=== PATIENT | male | born 1975 | race African-American/Black ===

== ENCOUNTER 2021-09-30 20:27 | Inpatient (IN) | payer SELFPAY ==
[2021-09-30 22:30] VITALS: BMI 27.3
[2021-09-30] MEDS ORDERED: Ondansetron PF 4 MG/2 ML Vial IVP PRN (22:56)
[2021-09-30] MEDS ORDERED: Acetaminophen 325 MG TAB PO PRN (22:56)
[2021-09-30] MEDS ORDERED: HumaLOG 300 UNITS/3 ML VIAL SC PRN (22:59)
[2021-09-30] MEDS ORDERED: Dextrose 5% in Water 1,000 ML IV PRN (22:59)
[2021-09-30] MEDS ORDERED: hydrALAZINE 20 MG/ML VIAL SLOW IVP PRN (22:59)
[2021-09-30] MEDS ORDERED: Dextrose 50% Abboject 50 ML SYRINGE SLOW IVP PRN (22:59)
[2021-09-30 23:27] LABS: #Lymphocytes 1.5 thou/uL (1.20-3.40); #Monocytes 1.1 thou/uL (0.11-0.59); #Neutrophils 7.4 thou/uL (1.40-6.50); %Basophils 0.4 % (0.0-1.0); %Eosinophils 0.3 % (0.0-10.0); %Lymphocytes 15.3 % (21.0-51.0); %Monocytes 10.6 % (0.0-10.0); %Neutrophils 73.4 % (42.0-75.0); Hemoglobin 13.4 g/dL (14.0-18.0); Mean Corpuscular HGB CONC 33.3 g/dL (32.0-36.0); Mean Corpuscular Hemoglobin 30.2 pg (27.0-31.0); Mean Corpuscular Volume 90.8 fL (78.0-98.0); Mean Platelet Volume 6.9 fL (7.4-10.4); Platelet Count 332 thou/uL (130-400); RBC Distribution Width 12.1 % (11.5-14.5); Red Blood Cell (RBC) Count 4.44 mill/uL (4.70-6.10); White Blood Cell (WBC) Count 10.1 thou/uL (4.8-10.8)
[2021-09-30] MEDS: Cefepime 2 GM in Sodium Chloride 0.9% 100 ML IVPB SCH (23:57)
[2021-10-01] MEDS: VANCOMYCIN 1.25 GM/250 ML BAG 1.25 GM in Premix Bag 1 BAG IVPB SCH ×3 (00:42→15:30)
[2021-10-01] MEDS: HYDROcodone/Acetaminophen 7.5/325 mg Tablet PO PRN ×3 (02:09→22:04)
[2021-10-01] MEDS: Morphine 4 MG/ML VIAL SLOW IVP PRN ×2 (03:05→09:11)
[2021-10-01 05:02] LABS: #Lymphocytes 1.6 thou/uL (1.20-3.40); #Monocytes 0.9 thou/uL (0.11-0.59); #Neutrophils 6.8 thou/uL (1.40-6.50); %Basophils 0.2 % (0.0-1.0); %Eosinophils 0.5 % (0.0-10.0); %Lymphocytes 16.7 % (21.0-51.0); %Monocytes 9.7 % (0.0-10.0); %Neutrophils 72.9 % (42.0-75.0); Hemoglobin 12.3 g/dL (14.0-18.0); Mean Corpuscular HGB CONC 31.9 g/dL (32.0-36.0); Mean Corpuscular Hemoglobin 28.9 pg (27.0-31.0); Mean Corpuscular Volume 90.7 fL (78.0-98.0); Mean Platelet Volume 6.7 fL (7.4-10.4); Platelet Count 341 thou/uL (130-400); Red Blood Cell (RBC) Count 4.24 mill/uL (4.70-6.10); White Blood Cell (WBC) Count 9.4 thou/uL (4.8-10.8)
[2021-10-01 05:24] LABS: Anion Gap 12 mmol/L (10-20); BUN (Urea Nitrogen) 7 mg/dL (8.9-20.6); Calc. Creatinine Clearance 155 mL/min (70-130); Calcium 8.5 mg/dL (7.8-10.44); Carbon Dioxide 23 mmol/L (22-29); Chloride 102 mmol/L (98-107); Glucose 240 mg/dL (70-105); Potassium 3.8 mmol/L (3.5-5.1); Sodium 133 mmol/L (136-145)
[2021-10-01] MEDS ORDERED: Enoxaparin Sodium 40 MG/0.4 ML SYRINGE SC SCH (09:00)
[2021-10-01] MEDS: Sodium Chloride 0.9% 1,000 ML IV SCH ×3 (11:00→22:13)
[2021-10-01] MEDS ORDERED: Fentanyl 100 MCG/2 ML VIAL ONE ×2 (11:22→12:50)
[2021-10-01] MEDS ORDERED: Ondansetron PF 4 MG/2 ML Vial ONE (12:03)
[2021-10-01] MEDS ORDERED: Lidocaine 1% PF 5 ML VIAL ONE (12:03)
[2021-10-01] MEDS ORDERED: Rocuronium Bromide 10 MG/ML (10ML VIAL) ONE (12:03)
[2021-10-01] MEDS ORDERED: PROPOFOL 200 MG/20 ML VIAL ONE (12:03)
[2021-10-01] MEDS ORDERED: Glycopyrrolate 0.2 MG/ML 5 ML SYRINGE ONE (12:03)
[2021-10-01] MEDS ORDERED: Dexamethasone 20 MG/5 ML VIAL ONE (12:03)
[2021-10-01] MEDS ORDERED: Ketorolac Tromethamine 30 MG/ML VIAL ONE (12:03)
[2021-10-01] MEDS ORDERED: Promethazine HCl 25 MG/ML VIAL IVPB PRN (12:32)
[2021-10-01] MEDS ORDERED: Promethazine HCl 25 MG/ML VIAL IM PRN (12:32)
[2021-10-01] MEDS ORDERED: Ondansetron HCl/PF 4 MG/2 ML Vial IVP PRN (12:32)
[2021-10-01] MEDS: Cefepime 2 GM in Sodium Chloride 0.9% 100 ML IVPB SCH ×2 (13:51→22:17)
[2021-10-01] MEDS: metFORMIN 500 MG TAB PO SCH (17:14)
[2021-10-01] MEDS: HumaLOG 300 UNITS/3 ML VIAL SC PRN (17:16)
[2021-10-01 23:48] LABS: Vancomycin, Trough 11.6 ug/mL
[2021-10-02] MEDS: VANCOMYCIN 1.25 GM/250 ML BAG 1.25 GM in Premix Bag 1 BAG IVPB SCH ×3 (00:26→15:10)
[2021-10-02 05:16] LABS: Hemoglobin A1c 10.2 % (4.0-6.0)
[2021-10-02 05:24] LABS: Hemoglobin 12.8 g/dL (14.0-18.0); Mean Corpuscular HGB CONC 33.4 g/dL (32.0-36.0); Mean Corpuscular Hemoglobin 30.6 pg (27.0-31.0); Mean Corpuscular Volume 91.4 fL (78.0-98.0); Mean Platelet Volume 7.2 fL (7.4-10.4); Platelet Count 340 thou/uL (130-400); RBC Distribution Width 12.1 % (11.5-14.5); Red Blood Cell (RBC) Count 4.19 mill/uL (4.70-6.10); White Blood Cell (WBC) Count 11.8 thou/uL (4.8-10.8)
[2021-10-02 05:29] LABS: Anion Gap 14 mmol/L (10-20); BUN (Urea Nitrogen) 8 mg/dL (8.9-20.6); Calc. Creatinine Clearance 161 mL/min (70-130); Calcium 8.8 mg/dL (7.8-10.44); Carbon Dioxide 22 mmol/L (22-29); Chloride 104 mmol/L (98-107); Glucose 329 mg/dL (70-105); Potassium 4.5 mmol/L (3.5-5.1); Sodium 135 mmol/L (136-145)
[2021-10-02] MEDS: HumaLOG 300 UNITS/3 ML VIAL SC PRN ×3 (05:43→17:03)
[2021-10-02] MEDS: Sodium Chloride 0.9% 1,000 ML IV SCH (05:45)
[2021-10-02 05:53] LABS: Band 17 % (5-11); Lymphocytes 9 % (21-51); MDiff Complete? YES; Monocytes 6 % (0-10); Neutrophil 68 % (42-75)
[2021-10-02] MEDS: HYDROcodone/Acetaminophen 7.5/325 mg Tablet PO PRN ×4 (05:55→23:35)
[2021-10-02] MEDS: glipiZIDE 10 MG TAB PO SCH (08:33)
[2021-10-02] MEDS: metFORMIN 500 MG TAB PO SCH ×2 (08:33→17:02)
[2021-10-02] MEDS: Morphine 4 MG/ML VIAL SLOW IVP PRN (10:09)
[2021-10-02] MEDS: Cefepime 2 GM in Sodium Chloride 0.9% 100 ML IVPB SCH ×2 (10:12→23:36)
[2021-10-02] MEDS: Lantus 1000 UNITS/10 ML VIAL SC SCH (20:55)
[2021-10-02 23:55] LABS: Vancomycin, Trough 12.5 ug/mL
[2021-10-03] MEDS: VANCOMYCIN 1.25 GM/250 ML BAG 1.25 GM in Premix Bag 1 BAG IVPB SCH ×4 (00:18→23:38)
[2021-10-03] MEDS: HYDROcodone/Acetaminophen 7.5/325 mg Tablet PO PRN ×4 (05:04→20:29)
[2021-10-03] MEDS: HumaLOG 300 UNITS/3 ML VIAL SC PRN ×3 (06:15→17:05)
[2021-10-03 06:20] LABS: #Eosinphils 0.1 thou/uL (0.0-0.7); #Lymphocytes 2.9 thou/uL (1.20-3.40); #Monocytes 0.7 thou/uL (0.11-0.59); #Neutrophils 5.4 thou/uL (1.40-6.50); %Basophils 0.3 % (0.0-1.0); %Eosinophils 0.8 % (0.0-10.0); %Lymphocytes 31.8 % (21.0-51.0); %Monocytes 7.5 % (0.0-10.0); %Neutrophils 59.6 % (42.0-75.0); Hemoglobin 11.9 g/dL (14.0-18.0); Mean Corpuscular HGB CONC 31.8 g/dL (32.0-36.0); Mean Corpuscular Hemoglobin 28.9 pg (27.0-31.0); Mean Corpuscular Volume 90.9 fL (78.0-98.0); Mean Platelet Volume 6.6 fL (7.4-10.4); Platelet Count 386 thou/uL (130-400); RBC Distribution Width 12.1 % (11.5-14.5); White Blood Cell (WBC) Count 9.1 thou/uL (4.8-10.8)
[2021-10-03 06:36] LABS: Anion Gap 10 mmol/L (10-20); BUN (Urea Nitrogen) 7 mg/dL (8.9-20.6); Calc. Creatinine Clearance 191 mL/min (70-130); Calcium 8.4 mg/dL (7.8-10.44); Carbon Dioxide 25 mmol/L (22-29); Chloride 105 mmol/L (98-107); Glucose 187 mg/dL (70-105); Potassium 3.9 mmol/L (3.5-5.1); Sodium 136 mmol/L (136-145)
[2021-10-03] MEDS: Docusate 100 MG CAP PO PRN (08:54)
[2021-10-03] MEDS: glipiZIDE 10 MG TAB PO SCH (08:54)
[2021-10-03] MEDS: metFORMIN 500 MG TAB PO SCH ×2 (08:54→16:21)
[2021-10-03] MEDS: Lantus 1000 UNITS/10 ML VIAL SC SCH ×2 (08:55→20:29)
[2021-10-03] MEDS: Cefepime 2 GM in Sodium Chloride 0.9% 100 ML IVPB SCH ×2 (11:06→23:01)
[2021-10-04] MEDS: HYDROcodone/Acetaminophen 7.5/325 mg Tablet PO PRN ×2 (01:13→16:27)
[2021-10-04 07:22] LABS: Vancomycin, Trough 12.9 ug/mL
[2021-10-04] MEDS: Lantus 1000 UNITS/10 ML VIAL SC SCH ×2 (08:35→21:12)
[2021-10-04] MEDS: metFORMIN 500 MG TAB PO SCH ×2 (08:39→16:27)
[2021-10-04] MEDS: glipiZIDE 10 MG TAB PO SCH (08:39)
[2021-10-04] MEDS: VANCOMYCIN 1.25 GM/250 ML BAG 1.25 GM in Premix Bag 1 BAG IVPB SCH (08:39)
[2021-10-04] MEDS: HumaLOG 300 UNITS/3 ML VIAL SC PRN (11:42)
[2021-10-04] MEDS: Cefepime 2 GM in Sodium Chloride 0.9% 100 ML IVPB SCH (11:42)
[2021-10-04] MEDS: Docusate 100 MG CAP PO PRN (16:26)
[2021-10-04] MEDS: Amoxicillin/Potassium Clav 875 MG TAB PO SCH (21:12)
[2021-10-05 04:45] LABS: #Eosinphils 0.1 thou/uL (0.0-0.7); #Lymphocytes 2.4 thou/uL (1.20-3.40); #Monocytes 0.7 thou/uL (0.11-0.59); #Neutrophils 5.5 thou/uL (1.40-6.50); %Basophils 0.5 % (0.0-1.0); %Eosinophils 1.6 % (0.0-10.0); %Monocytes 8.3 % (0.0-10.0); %Neutrophils 62.6 % (42.0-75.0); Hemoglobin 12.6 g/dL (14.0-18.0); Mean Corpuscular HGB CONC 33.2 g/dL (32.0-36.0); Mean Corpuscular Hemoglobin 30.1 pg (27.0-31.0); Mean Corpuscular Volume 90.8 fL (78.0-98.0); Mean Platelet Volume 6.6 fL (7.4-10.4); Platelet Count 402 thou/uL (130-400); RBC Distribution Width 12.1 % (11.5-14.5); Red Blood Cell (RBC) Count 4.19 mill/uL (4.70-6.10); White Blood Cell (WBC) Count 8.9 thou/uL (4.8-10.8)
[2021-10-05 05:04] LABS: Anion Gap 11 mmol/L (10-20); BUN (Urea Nitrogen) 7 mg/dL (8.9-20.6); Calc. Creatinine Clearance 183 mL/min (70-130); Calcium 8.8 mg/dL (7.8-10.44); Carbon Dioxide 28 mmol/L (22-29); Chloride 101 mmol/L (98-107); Glucose 214 mg/dL (70-105); Sodium 136 mmol/L (136-145)
[2021-10-05] MEDS: HumaLOG 300 UNITS/3 ML VIAL SC PRN ×2 (05:52→11:29)
[2021-10-05] MEDS: metFORMIN 500 MG TAB PO SCH ×2 (08:09→19:12)
[2021-10-05] MEDS: glipiZIDE 10 MG TAB PO SCH (08:09)
[2021-10-05] MEDS: Amoxicillin/Potassium Clav 875 MG TAB PO SCH ×2 (08:09→20:08)
[2021-10-05] MEDS: Lantus 1000 UNITS/10 ML VIAL SC SCH ×2 (08:10→20:08)
[2021-10-06] MEDS: glipiZIDE 10 MG TAB PO SCH (06:34)
[2021-10-06] MEDS: Lantus 1000 UNITS/10 ML VIAL SC SCH (08:53)
[2021-10-06] MEDS: metFORMIN 500 MG TAB PO SCH (08:53)
[2021-10-06] MEDS: Amoxicillin/Potassium Clav 875 MG TAB PO SCH (08:53)
[2021-10-06] MEDS: Morphine 4 MG/ML VIAL SLOW IVP PRN (09:05)
[2021-10-06] MEDS: HumaLOG 300 UNITS/3 ML VIAL SC PRN (11:56)
[2021-10-06 16:17] VITALS: BP 136/83; TEMP 98.3
== END 2021-10-06 17:30 | disposition home or self-care (01) | DRG 638 ==
LOC: 2SW 20:27 → OBSVTOIN 20:27
PROVIDERS: ADMIT Internal Medicine; ATTEND Internal Medicine
PROC: 0J970ZZ Drainage of Back Subcutaneous Tissue and Fascia, Open Approach (ICD-10-PCS; principal; 2021-09-30)
DX: E11.628 Type 2 diabetes mellitus with other skin complications (principal); L02.212 Cutaneous abscess of back [any part, except buttock and flank]; E87.1 Hypo-osmolality and hyponatremia; E11.9 Type 2 diabetes mellitus without complications; L73.2 Hidradenitis suppurativa; B96.4 Proteus (mirabilis) (morganii) as the cause of diseases classified elsewhere; B95.2 Enterococcus as the cause of diseases classified elsewhere; Z79.899 Other long term (current) drug therapy; Z79.84 Long term (current) use of oral hypoglycemic drugs
CPT/HCPCS: 36415; 36416; 80048; 80202; 83036; 85025; 87070; 87077; 87186; 87205; J0692; J1100; J1815; J1885; J2270; J2405; J2704; J3010; J3370; J3490; J7050

== ENCOUNTER 2024-01-13 13:08 | Outpatient (CLI) | payer MEDICARE ==
[2024-01-13 14:43] LABS: #Eosinphils 0.1 10x3/uL (0.0-0.5); #Monocytes 0.6 10x3/uL (0.0-1.1); #Neutrophils 5.6 10x3/uL (1.5-8.4); %Basophils 0.3 % (0.0-2.0); %Eosinophils 0.6 % (0.0-6.0); %Lymphocytes 31.4 % (18.0-47.0); %Monocytes 6.8 % (0.0-10.0); %Neutrophils 60.7 % (40.0-75.0); Hematocrit 25.5 % (38.8-50.0); Hemoglobin 8.1 g/dL (13.5-17.5); Mean Corpuscular HGB CONC 31.8 g/dL (32.0-36.0); Mean Corpuscular Hemoglobin 26.2 pg (27.0-33.0); Mean Corpuscular Volume 82.5 fl (81.2-95.1); Mean Platelet Volume 8.8 fl (7.4-10.4); Platelet Count 535 10x3/uL (150-450); RBC Distribution Width 16.1 % (11.5-14.5); Red Blood Cell (RBC) Count 3.09 10x6/uL (4.32-5.72); White Blood Cell (WBC) Count 9.3 10x3/uL (3.5-10.5)
[2024-01-13 15:07] LABS: ALT (SGPT) Less than 7 U/L (8-55); AST (SGOT) 10 U/L (5-34); Albumin 2.8 g/dL (3.5-5.0); Alkaline Phosphatase 106 U/L (40-110); Anion Gap 11 mmol/L (10-20); BUN (Urea Nitrogen) 9 mg/dL (8.9-20.6); Bilirubin, Total 0.4 mg/dL (0.2-1.2); Calc. Creatinine Clearance 0 mL/min (70-130); Carbon Dioxide 24 mmol/L (22-29); Chloride 102 mmol/L (98-107); Estimated GFR 103; Globulin 5.4 g/dL (2.4-3.5); Glucose 111 mg/dL (70-105); Potassium 3.4 mmol/L (3.5-5.1); Protein, Total 8.2 g/dL (6.0-8.3); Sodium 134 mmol/L (136-145)
== END 2024-01-13 13:09 | disposition home or self-care (01) ==
LOC: LABBT 13:08
PROVIDERS: ATTEND Surgery
DX: Z01.812 Encounter for preprocedural laboratory examination (principal); L73.2 Hidradenitis suppurativa; A18.01 Tuberculosis of spine
CPT/HCPCS: 80053; 85025

== ENCOUNTER 2024-01-16 07:47 | Day surgery (SDC) | payer MEDICARE ==
[2024-01-13 13:50] VITALS: BMI 26.4
[2024-01-16] MEDS ORDERED: Ondansetron PF 4 MG/2 ML Vial ONE (10:04)
[2024-01-16] MEDS ORDERED: fentaNYL PF 100 MCG/2 ML SYRINGE ONE (10:04)
[2024-01-16] MEDS ORDERED: Rocuronium Bromide 10 MG/ML (10ML VIAL) ONE (10:04)
[2024-01-16] MEDS ORDERED: PROPOFOL 20 ML ONE (10:04)
[2024-01-16] MEDS ORDERED: Lidocaine 1% PF 5 ML VIAL ONE (10:04)
[2024-01-16] MEDS ORDERED: Sodium Chloride 0.9% 100 ML ONE (10:13)
[2024-01-16] MEDS ORDERED: cefOXitin 2 GM VIAL ONE (10:13)
[2024-01-16] MEDS ORDERED: EPINEPHrine 1 MG/ML VIAL ONE (10:47)
[2024-01-16] MEDS ORDERED: Bupivacaine 0.25% HCL 30 ML VIAL ONE (10:47)
[2024-01-16] MEDS ORDERED: SUGAMMADEX SODIUM 200 MG/2 ML VIAL ONE (11:09)
[2024-01-16] MEDS ORDERED: fentaNYL 50 mcg/mL 1 mL Vial ONE ×3 (11:30→11:48)
[2024-01-16] MEDS ORDERED: HYDROmorphone 0.5 MG/0.5 ML SYRINGE ONE (11:40)
[2024-01-16] MEDS ORDERED: HYDROcodone/Acetaminophen 5/325 mg Tablet ONE (12:50)
== END 2024-01-16 14:08 | disposition home or self-care (01) ==
LOC: SDC 07:47
PROVIDERS: ATTEND Surgery
PROC: 0H98X0Z Drainage of Buttock Skin with Drainage Device, External Approach (ICD-10-PCS; principal; 2024-01-16)
DX: L73.2 Hidradenitis suppurativa (principal); L02.31 Cutaneous abscess of buttock; M46.28 Osteomyelitis of vertebra, sacral and sacrococcygeal region; E11.9 Type 2 diabetes mellitus without complications; I10 Essential (primary) hypertension; E78.00 Pure hypercholesterolemia, unspecified; K21.9 Gastro-esophageal reflux disease without esophagitis; Z79.84 Long term (current) use of oral hypoglycemic drugs; Z79.899 Other long term (current) drug therapy
CPT/HCPCS: 10061; 87070; 87075; 87205; J0171; J3010; 87077; 88304; J0665; J0694; J1170; J2405; J2704; J3490

== ENCOUNTER 2024-05-10 12:23 | Outpatient (CLI) | payer MEDICARE ==
[2024-05-10 13:09] LABS: #Basophils 0.05 10x3/uL (0.0-0.2); #Eosinphils 0.07 10x3/uL (0.0-0.5); #Monocytes 0.65 10x3/uL (0.0-1.1); #Neutrophils 5.47 10x3/uL (1.5-8.4); %Basophils 0.6 % (0.0-2.0); %Eosinophils 0.8 % (0.0-6.0); %Lymphocytes 25.2 % (18.0-47.0); %Monocytes 7.8 % (0.0-10.0); %Neutrophils 65.2 % (40.0-75.0); Hematocrit 27.6 % (38.8-50.0); Hemoglobin 8.9 g/dL (13.5-17.5); Mean Corpuscular HGB CONC 32.2 g/dL (32.0-36.0); Mean Corpuscular Hemoglobin 25.4 pg (27.0-33.0); Mean Corpuscular Volume 78.6 fL (81.2-95.1); Platelet Count 296 10x3/uL (150-450); RBC Distribution Width 18.8 % (11.5-14.5); Red Blood Cell (RBC) Count 3.51 10x6/uL (4.32-5.72); White Blood Cell (WBC) Count 8.4 10x3/uL (3.5-10.5)
[2024-05-10 13:33] LABS: ALT (SGPT) 17 U/L (8-55); AST (SGOT) 18 U/L (5-34); Albumin 2.4 g/dL (3.5-5.0); Alkaline Phosphatase 152 U/L (40-110); Anion Gap 12 mmol/L (10-20); BUN (Urea Nitrogen) 22 mg/dL (8.9-20.6); Bilirubin, Total 0.3 mg/dL (0.2-1.2); Calc. Creatinine Clearance 0 mL/min (70-130); Calcium 8.4 mg/dL (7.8-10.44); Carbon Dioxide 24 mmol/L (22-29); Chloride 103 mmol/L (98-107); Estimated GFR 74; Globulin 5.8 g/dL (2.4-3.5); Glucose 201 mg/dL (70-105); Potassium 4.3 mmol/L (3.5-5.1); Protein, Total 8.2 g/dL (6.0-8.3); Sodium 135 mmol/L (136-145)
== END 2024-05-10 12:24 | disposition home or self-care (01) ==
LOC: LABBT 12:23
PROVIDERS: ATTEND Surgery
DX: Z01.812 Encounter for preprocedural laboratory examination (principal); L02.31 Cutaneous abscess of buttock
CPT/HCPCS: 80053; 85025

== ENCOUNTER 2024-05-14 08:05 | Day surgery (SDC) | payer MEDICARE ==
[2024-05-10 13:00] VITALS: BMI 27.7
[2024-05-14] MEDS ORDERED: fentaNYL PF 100 MCG/2 ML SYRINGE ONE (08:19)
[2024-05-14] MEDS ORDERED: PROPOFOL 0 ML ONE (08:19)
[2024-05-14] MEDS ORDERED: Lidocaine 1% PF 5 ML VIAL ONE (08:20)
[2024-05-14] MEDS ORDERED: Dexamethasone 4 mg/ml Vial ONE (08:20)
[2024-05-14] MEDS ORDERED: Rocuronium Bromide 10 MG/ML (10ML VIAL) ONE (08:20)
[2024-05-14] MEDS ORDERED: Ondansetron PF 4 MG/2 ML Vial ONE (08:20)
[2024-05-14] MEDS ORDERED: Vancomycin 2 GM in Sodium Chloride 0.9% 500 ML IVPB SCH (08:45)
[2024-05-14] MEDS ORDERED: Vancomycin (BATCH) 2 GM in Premix 1 BAG IVPB SCH (08:45)
[2024-05-14] MEDS ORDERED: Vancomycin (BATCH) 1.5 GM/300 ML BAG ONE (08:50)
[2024-05-14] MEDS ORDERED: Vancomycin (BATCH) 1.5 GM in Premix 1 BAG IVPB SCH (09:15)
== END 2024-05-14 09:45 | disposition home or self-care (01) ==
LOC: SDC 08:05
PROVIDERS: ATTEND Surgery
DX: L02.31 Cutaneous abscess of buttock (principal); Z53.9 Procedure and treatment not carried out, unspecified reason
CPT/HCPCS: J3370 ×3; J7030; J1100; J2405; J2704